=== PATIENT | female | born 1945 | race Asian ===

== ENCOUNTER 2019-01-24 22:49 | Inpatient (IN) | payer MEDICARE, OTHER ==
[~2019-01-24] VITALS: Ht 157.5 cm; Wt 47.6 kg
[2019-01-25 03:30] VITALS: BP 119/71
[2019-01-25] MEDS ORDERED: LORAZEPAM 0.5 MG TABLET PO PRN (04:00)
[2019-01-25] MEDS ORDERED: MAG HYDROX/AL HYDROX/SIMETH 30 ML UDC PO PRN (04:00)
[2019-01-25] MEDS ORDERED: ACETAMINOPHEN 325 MG TABLET PO PRN (04:00)
[2019-01-25] MEDS ORDERED: MAGNESIUM HYDROXIDE 30 ML UDC PO PRN (04:00)
[2019-01-25] MEDS ORDERED: MIRT15TA7 PO (04:12)
[2019-01-25] MEDS ORDERED: FAMO40TA7 PO (04:13)
[2019-01-25] MEDS ORDERED: MELA3TAB PO (04:14)
[2019-01-25] MEDS ORDERED: VORT10TA PO (04:18)
--- NOTE | 2019-01-25 04:48 | NUR ---
GPS CYBER SECURITY ARCHITECT NOTES: ADMITTED A 73 YO AZERI FEMALE FROM [facility] ON 5150 HOLD FOR DANGER TO SELF. PER HOLD, PATIENT TRIED TO STRANGLE HERSELF WITH THE USE OF A PANTYHOSE, AND SHE THEN SEEN BY HER DAUGHTER AND BROUGHT TO THE HOSPITAL. PATIENT WILL BE UNDER THE CARE OF DR. PERSAUD AND PAYTON RUSH FOR PSYCHE AND MEDICAL DOCTORS RESPECTIVELY, PATIENT WAS BROUGHT IN THE UNIT VIA GURNEY BY AMBULANCE STAFF. PATIENT THEN USHERED TO THE ROOM AND CHANGED TO HER OWN CLOTHES, SHE PREFERS IT OVER THE HOSPITAL GOWN. UPON FACE TO FACE ASSESSMENT,PATIENT PRESENTS ALERT AND ORIENTED X2, SPEAKS AZERI ONLY, UNKEMPT, DISORGANIZED, CONFUSED AT TIMES. REALITY ORIENTATION DONE. PATIENT REFUSED TO SIGN ALL ADMISSION PAPERS. SKIN AND ASSESSMENT DONE WITH CHRISTIANO ALCANTARA. NOTED REDNESS ON THE MEDIAL ASPECT OF BOTH FEET, REDNESS ON BOTH CHEEKS, THESE SKIN ISSUES WITH PICTURES ON THE CHART. PATIENT HAS NOTED REDNESS ON HER NECK SHE TRIED TO STRANGLE HERSELF, HOWEVER PATIENT REFUSED FOR PICTURES TO BE DONE. REALITY ORIENTATION DONE. MEDS FOR RECONCILIATION IN THE SYSTEM READY FOR REVIEW. Q15 MIN CHECKS INITIATED, CARE PLAN STARTED. ROOM SAFETY CHECK. SAFETY AND FALL PRECAUTIONS OBSERVED. WILL INFORM HER DAUGHTER OF ADMISSION IN THE MORNING. WILL MONITOR PATIENT FOR MOOD, SAFETY AND BEHAVIOR.
--- NOTE | 2019-01-25 07:01 | NUR ---
GPS RN NOTES: PATIENT'S DAUGHTER AMARILYS RICHMOND INFORMED OF THE ADMISSION. SHE IS NOT ABLE TO GIVE ANY MEDICAL HISTORY REGARDING THE PATIENT. MRSA DONE AND SENT TO LAB.
[2019-01-25 08:00] VITALS: BP 137/80
[2019-01-25 16:00] VITALS: BP 117/53
--- NOTE | 2019-01-25 16:15 | NUR ---
Group Note: Pt was unable to attend group on 01/25/19 at 2:30PM due to a language barrier and cognitive impairment.
[2019-01-25 20:00] VITALS: BP 112/68
[2019-01-25] MEDS: clonazePAM 0.5 MG TABLET PO SCH (20:37)
[2019-01-25] MEDS: MIRTAZAPINE 15 MG TABLET PO SCH (21:27)
[2019-01-26 07:03] LABS: CHOLESTEROL 212 mg/dL (<200); HDL CHOLESTEROL 87 mg/dL (40-60); LDL 116 mg/dL (0-99); TRIGLYCERIDES 42 mg/dL (30-150)
[2019-01-26 07:04] LABS: ALANINE AMINOTRANSFERASE 25 U/L (12-78); ALBUMIN 3.4 g/dL (3.4-5.0); ALKALINE PHOSPHATASE 61 U/L (46-116); ASPARTATE AMINOTRANSFERASE 25 U/L (15-37); BILIRUBIN,TOTAL 0.6 mg/dL (0.2-1.0); CALCIUM, SERUM 8.9 mg/dL (8.5-10.1); CARBON DIOXIDE 29 mmol/L (21-32); CHLORIDE 97 mmol/L (98-107); CREATININE 0.9 mg/dL (0.6-1.3); GLUCOSE 104 mg/dL (74-106); POTASSIUM 4.4 mmol/L (3.5-5.1); SODIUM SERUM 132 mmol/L (136-145); TOTAL PROTEIN, SERUM 6.7 g/dL (6.4-8.2); UREA NITROGEN, BLOOD 17 mg/dL (7-18)
[2019-01-26 07:09] LABS: BASOPHILS % (AUTO) 0.6 % (0.0-2.0); HEMATOCRIT 38 % (33-45); HEMOGLOBIN 12.9 g/dL (11.5-14.8); LYMPHOCYTES # (AUTO) 1.6 /CMM (0.8-4.8); LYMPHOCYTES % (AUTO) 27.2 % (20.0-44.0); MEAN CORPUSCULAR HGB CONC 34 g/dl (31.0-36.0); MEAN CORPUSCULAR VOLUME 103 fL (82-100); MONOCYTES # (AUTO) 0.5 /CMM (0.1-1.30); MONOCYTES % (AUTO) 8.1 % (2.0-12.0); NEUTROPHILS # (AUTO) 3.7 /CMM (1.8-8.9); NEUTROPHILS % (AUTO) 63.1 % (43.0-81.0); PLATELET COUNT (AUTO) 256 /CMM (150-450); RED BLOOD CELL COUNT(AUTO) 3.67 MIL/uL (4.0-5.2); WHITE BLOOD COUNT (AUTO) 5.9 K/uL (4.3-11.0)
[2019-01-26 08:00] VITALS: BP 112/74
[2019-01-26] MEDS: clonazePAM 0.5 MG TABLET PO SCH ×2 (08:10→20:31)
--- NOTE | 2019-01-26 11:55 | NUR ---
ADRIEL contacted pts daughter Lay [phone] for collateral information and treatment planning. Per daughter she wishes for pt to be transferred to [facility] due to pts language barrier and also that hospital being close to her home. Daughter expressed a strong desire for pt to be transferred to [facility]. ADRIEL informed her that she would be contacting the hospital to ask about bed availability and will also discuss with pts psychiatrist.
--- NOTE | 2019-01-26 12:20 | NUR ---
ADRIEL contacted [facility] Address: [address], [place] [address] and spoke with Andrés who stated that they currently have 2 female beds open. .
--- NOTE | 2019-01-26 13:13 | NUR ---
INITIAL DISCHARGE PLAN: Patients daughter Lay [phone] wishes for pt to return home to [facility] [facility] [address] . Patient also wishes to return home. ADRIEL will help form a safe and proper discharge in collaboration with .
[2019-01-26 16:00] VITALS: BP 110/63
[2019-01-26] MEDS ORDERED: MIRTAZAPINE 15 MG TABLET PO SCH (18:00)
[2019-01-26] MEDS ORDERED: Medication Not On Formulary EA (Melatonin 1 TAB) PO SCH (18:00)
[2019-01-26 19:45] VITALS: BP 113/66
[2019-01-26] MEDS: FAMOTIDINE (20 MG) 20 MG TABLET PO SCH (21:12)
[2019-01-26] MEDS: MIRTAZAPINE 15 MG TABLET PO SCH (21:13)
[2019-01-27 08:00] VITALS: BP 102/73
[2019-01-27] MEDS: clonazePAM 0.5 MG TABLET PO SCH ×2 (08:14→20:24)
[2019-01-27 16:00] VITALS: BP_SYST 113; BP_SYST 144; BP_DIAS 65; BP_DIAS 76
[2019-01-27 19:45] VITALS: BP 118/69
[2019-01-27] MEDS: MIRTAZAPINE 15 MG TABLET PO SCH (21:05)
[2019-01-27] MEDS: FAMOTIDINE (20 MG) 20 MG TABLET PO SCH (21:05)
[2019-01-27] MEDS: TEMAZEPAM 7.5 MG CAPSULE PO PRN (23:26)
[2019-01-28 08:00] VITALS: BP 108/63
[2019-01-28] MEDS: clonazePAM 0.5 MG TABLET PO SCH ×2 (09:12→21:07)
[2019-01-28 16:00] VITALS: BP 114/64
[2019-01-28 19:30] LABS: APPEARANCE,URINE CLEAR (CLEAR); BILIRUBIN,URINE NEGATIVE (NEGATIVE); BLOOD, URINE NEGATIVE Ery/uL (NEGATIVE); COLOR,URINE YELLOW (YELLOW); KETONES,URINE NEGATIVE (NEGATIVE); LEUKOCYTE ESTERASE ,URINE 1+ (NEGATIVE); NITRITE, URINE NEGATIVE (NEGATIVE); PROTEIN,URINE NEGATIVE (NEGATIVE); UGLUCOSE NEGATIVE (NEGATIVE); UROBILINOGEN,URINE 0.2 EU/dL (0.2)
[2019-01-28 20:00] VITALS: BP 117/67
[2019-01-28 20:24] LABS: BACTERIA,URINE Rare /HPF (None Seen); RBC,URINE 0-2 /HPF (0-2); SQUAMOUS EPITHELIAL CELL,UR 0-2 /HPF (None Seen)
[2019-01-28] MEDS: MIRTAZAPINE 15 MG TABLET PO SCH (21:07)
[2019-01-28] MEDS: FAMOTIDINE (20 MG) 20 MG TABLET PO SCH (21:07)
[2019-01-29 08:00] VITALS: BP 108/72
[2019-01-29] MEDS: clonazePAM 0.5 MG TABLET PO SCH ×2 (09:21→21:00)
[2019-01-29 16:00] VITALS: BP 110/70
[2019-01-29 20:05] VITALS: BP 109/71
[2019-01-29] MEDS: SULFAMETH/TRIMETH 800/160 MG 1 UDTAB TABLET PO SCH (20:59)
[2019-01-29] MEDS: FAMOTIDINE (20 MG) 20 MG TABLET PO SCH (21:00)
[2019-01-29] MEDS: MIRTAZAPINE 15 MG TABLET PO SCH (21:47)
[2019-01-29] MEDS: TEMAZEPAM 7.5 MG CAPSULE PO PRN (23:10)
[2019-01-30 08:00] VITALS: BP 115/69
--- NOTE | 2019-01-30 08:13 | NUR ---
ADRIEL contacted pts daughter Lay [phone] and informed her pt was discharging on this present day. She stated she would come at 12:00pm to pick pt up.
[2019-01-30] MEDS: clonazePAM 0.5 MG TABLET PO SCH (08:34)
[2019-01-30] MEDS: SULFAMETH/TRIMETH 800/160 MG 1 UDTAB TABLET PO SCH (08:34)
--- NOTE | 2019-01-30 09:42 | NUR ---
DISCHARGE NOTE: Pt will be discharging at 12:00pm home to [address] [facility] [address]. Patients daughter Lay [phone] will be picking pt up and transporting home. Pts mood is euthymic with congruent affect. Pt denied visual/auditory hallucinations and denied suicidal/homicidal ideations. Pt will follow up on Tuesday01/31/19 at 12:00pm with [facility] Address: [address] [place] [phone] , faxed clinical paper work to . Pt was also given a referral to Nautical Instrument Mechanic: Roya Rodarte M.D. ([facility]) Address: [address] [place] [address] . The multidisciplinary exitcare form was done, printed, signed, and given to the patient.
--- NOTE | 2019-01-30 10:02 | NUR ---
GROUP NOTE: ADRIEL prompted pt to attend group on this present day to discuss discharge planning, pt was asleep in her room and not easily aroused. Addendum: 01/30/19 at 1003 by FESTUS MOREL group note for 01/29/19 at 1500.
--- NOTE | 2019-01-30 13:36 | NUR ---
FONDANT PUFF MAKER NOTE: PATIENT IS A 73 YEAR OLD FEMALE THAT WAS DISCHARGED HOME TO [address] [facility] [address]. PATIENT IS IN STABLE CONDITION. COMPLIANT WITH PLAN OF CARE. COOPERATIVE WITH MEDICATION MANAGEMENT AND TREATMENT PLANS. PATIENT DENIES SI/HI AT THIS TIME. BEHAVIOR HAS IMPROVED. PSYCHIATRIC TREATMENT PLANS MET. MEDICAL TREATMENT PLANS DEFERRED FOR CONTINUAL MONITORING. EDUCATED PATIENT ABOUT AFTERCARE AND COPY PROVIDED ALONG WITH MEDICATION PRESCRIPTIONS. DR. PERSAUD NOTIFIED OF DISCHARGE WITH ORDERS TO DC HOLD; DR. PENA AWARE OF DISCHARGE WELL WITH COMPLETE MED RECON. INSTRUCTED TO FOLLOW UP WITH [facility] LOCATED AT [address] [facility] [address] AND CASH APPLICATION REPRESENTATIVE BRUCE FERRARO MD [facility] [address] [facility] [address] IN 1 WEEK. RETURNED PERSONAL BELONGINGS TO PATIENT. PATIENT SIGNED PAPERWORK. REFUSED SKIN CHECK, STATED THAT SOMEONE ALREADY TOOK PICTURES OF HER SKIN BEFORE. NO ACUTE DISTRESS NOTED. NO COMPLAINTS. DAUGHTER SUN CAME TO PULLMAN CLERK THE PATIENT AND LEFT GPS AT 1320.
== END 2019-01-30 13:20 | disposition home or self-care (01) | DRG 881 ==
LOC: GPS 01-25 03:19
PROVIDERS: ADMIT Psychiatry & Neurology Psychiatry; ATTEND Internal Medicine
DX: F32.9 Major depressive disorder, single episode, unspecified (principal); E87.1 Hypo-osmolality and hyponatremia; N39.0 Urinary tract infection, site not specified; R45.851 Suicidal ideations; F41.9 Anxiety disorder, unspecified; E78.5 Hyperlipidemia, unspecified; I10 Essential (primary) hypertension; K21.9 Gastro-esophageal reflux disease without esophagitis; Z73.6 Limitation of activities due to disability
CPT/HCPCS: 36415; 80053-TC; 80061-TC; 81000-TC; 85025-TC; 87081-TC; 87086-TC